=== PATIENT | female | born 1970 | race Caucasian/White ===

== ENCOUNTER 2017-03-30 09:56 | Outpatient (CLI) | payer OTHER ==
--- NOTE | 2017-03-30 12:58 | Ultrasound Report ---
Left mammogram and left breast ultrasound: Patient presents with a brief history of left breast pain in the superior breast. Routine imaging of the left breast as compared to prior screening exam in August 2016. There is a heterogeneous fibroglandular breast pattern which is diffusely distributed. No focal mass, architectural distortion, or calcifications identified. The findings are unchanged compared to prior study. Whole breast ultrasound demonstrates that in the 12:00 location there is a well-circumscribed homogeneously hypoechoic nodule measuring 8 mm in size. Adjacent to this is an anechoic circumscribed nodule measuring 5 mm. The findings otherwise are generally unremarkable. Impressions: Stable, unremarkable mammogram. Probably benign left breast nodules. Recommendation: Repeat ultrasound in 6 months to reevaluate hypoechoic nodule. The findings and recommendations have been told the patient. BI-RADS CATEGORY: 3 = Probably benign ACR BI-RADS MAMMOGRAPHIC CODES: 0 = Needs additional imaging evaluation; 1 = Negative; 2 = Benign; 3 = Probably benign; 4 = Suspicious; 5 = Malignant; 6 = Known biopsy-proven malignancy COMMENT: 1. Dense breast tissue, i.e., adenosis, fibrocystic changes, etc., may obscure an underlying neoplasm. 2. Approximately 10% of cancers are not detected with mammography. 3. A negative mammography report should not delay biopsy if a clinically suspicious mass is present.
== END 2017-03-30 09:57 | disposition home or self-care (01) ==
LOC: US 09:56
PROVIDERS: ATTEND Family Medicine
DX: N63 Unspecified lump in breast (principal); N64.4 Mastodynia
CPT/HCPCS: 76641; G0206

== ENCOUNTER 2017-07-27 10:19 | Outpatient (CLI) | payer OTHER ==
--- NOTE | 2017-07-27 15:11 | Ultrasound Report ---
BILATERAL DIGITAL DIAGNOSTIC MAMMOGRAM with CAD and BILATERAL BREAST ULTRASOUND: 07/27/17 11:15:00 CLINICAL: Bilateral breast pain. She had an ultrasound of the left breast 03/30/17 for breast pain and a followup ultrasound was recommended. COMPARISON:08/23/16 bilateral mammogram and 03/30/17 left breast ultrasound. FINDINGS: The breasts are heterogeneously dense, which may obscure small masses.No mass, architectural distortion or suspicious calcifications.No mammographic abnormality and a palpable marker in the upper outer right breast that peck the area of pain. Ultrasound of the right breast (including all four quadrants and the retroareolar area) was performed. A benign cyst at 9 o'clock 7 cm from the nipple measures 7 x 5 x 7 mm. A complex lesion at 7 o'clock 4 cm from the nipple measures 1.1 x 0.3 x 0.6 cm and is probably a benign intramammary lymph node. 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 The duct ectasia involves two adjacent TDLUs. Ultrasound of the left breast was performed and demonstrated benign cysts to correlate with the previously described lesions. A benign cyst at 12 o'clock 5 cm from the nipple measures 5 x 6 x 5 mm. Fluid additional cysts in the same vicinity correlate with previously described lesions and or small cysts measuring 6 and 5 mm. No solid mass or shadowing. IMPRESSION: 1. 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 Recommend ultrasound guided vacuum assisted needle biopsy to exclude malignancy. 2. A benign cyst at 9 o'clock right breast and a probable benign intramammary lymph node at 7 o'clock right breast. 3.Benign left breast cysts. BI-RADS CATEGORY: 4--Suspicious RECOMMENDATION: Ultrasound guided vacuum assisted needle core biopsy of the right breast. I discussed the findings and the recommendation for needle core biopsy with the patient and with her son by phone at the time of the examination. COMMENT: Patient follow-up letters are generated by our [employer] application.
== END 2017-07-27 10:20 | disposition home or self-care (01) ==
LOC: SPVWC 10:19
PROVIDERS: ATTEND Family Medicine
DX: N60.01 Solitary cyst of right breast (principal); N60.02 Solitary cyst of left breast; N60.41 Mammary duct ectasia of right breast; N63.10 Unspecified lump in the right breast, unspecified quadrant
CPT/HCPCS: 76641; 76642; G0204; 77066